=== PATIENT | female | born 2005 | race African-American/Black ===

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

== ENCOUNTER 2025-09-04 18:45 | Emergency (ER) | payer MEDICAID ==
[~2025-09-04] VITALS: Ht 182.9 cm; Wt 60.0 kg
[~2025-09-04 18:45] MED LIST: IBUP-1455 MT
[2025-09-04 18:46] VITALS: O2SAT 97
[2025-09-04 19:44] LABS: BASOPHILS % 0.9 % (0.0-2.0); EOSINOPHILS % 0.1 % (0.0-5.0); HEMATOCRIT. 41.1 % (36.0-48.0); HEMOGLOBIN. 13.5 g/dL (12.0-16.0); LYMPHOCYTES % 15.6 % (20.0-50.0); MEAN PLATELET VOLUME 9.3 fl (7.4-10.4); MONOCYTES % 9.7 % (2.0-8.0); NEUTROPHILS % 73.7 % (40.0-76.0); PLATELET 341 x1000/uL (130-400); RED BLOOD CELL COUNT 4.84 mill/uL (4.2-5.4); RED CELL DISTRIBUTION WIDTH 16.2 % (11.6-14.6)
[2025-09-04] MEDS: SODIUM CHLORIDE 0.9% 1,000 ML IV ONE (19:57)
[2025-09-04] MEDS: ONDANSETRON HCL 4MG/2ML INJ IV ONE (19:57)
[2025-09-04 20:02] LABS: CREATININE 0.9 mg/dL (0.6-1.0)
[2025-09-04 20:03] LABS: UREA NITROGEN BLOOD 17 mg/dL (9-23)
[2025-09-04 20:04] LABS: ASPARTATE AMINOTRANSFERASE 19 IU/L (<34); BILIRUBIN DIRECT 0.4 mg/dL (<=3.0)
[2025-09-04 20:05] LABS: BILIRUBIN TOTAL 1.6 mg/dL (0.1-1.0); PROTEIN TOTAL 8.2 g/dL (6.0-8.3)
[2025-09-04 20:17] LABS: HCG SCREEN NEGATIVE
[2025-09-04] MEDS: KETOROLAC 15MG/ML VIAL IV ONE (20:30)
[2025-09-04 21:52] LABS: CLARITY URINE CLEAR (CLEAR); COLOR URINE DARK YELLOW (YELLOW); GLUCOSE URINE NEGATIVE (NEGATIVE); KETONES URINE 1+ (NEGATIVE); LEUKOCYTE ESTERASE URINE TRACE (NEGATIVE); NITRITE URINE NEGATIVE (NEGATIVE); OCCULT BLOOD URINE 2+ (NEGATIVE); PH URINE 6.5 (4.5-8.0); PROTEIN URINE 1+ (NEGATIVE); SPECIFIC GRAVITY URINE 1.036 (1.005-1.030); UROBILINOGEN URINE 1.0 E.U./dL (0.2-1.0)
[2025-09-04 22:05] LABS: BACTERIA URINE 1+; SQUAMOUS EPITHELIAL CELL URINE FEW /lpf (RARE/1+)
[2025-09-04] MEDS ORDERED: SULF1TAB48 MT (22:09)
[2025-09-04] MEDS ORDERED: IBUP-1455 MT (22:10)
[2025-09-04 22:26] VITALS: BP 123/71; PULSE 93; RESP 16; TEMP 36.7; O2SAT 100
== END 2025-09-04 23:01 | disposition home or self-care (01) ==
LOC: ER 18:45
DX: N39.0 Urinary tract infection, site not specified (principal); R10.9 Unspecified abdominal pain; N91.2 Amenorrhea, unspecified; N94.6 Dysmenorrhea, unspecified
CPT/HCPCS: 99284; 96374; 96361; 96375; 80076; 80048; 81003; 84703; 83690; 83735; 85025; 36415; J1885; J2405; J7030

== ENCOUNTER 2025-10-04 09:42 | Emergency (ER) | payer MEDICAID ==
[~2025-10-04] VITALS: Ht 182.9 cm; Wt 54.0 kg
[~2025-10-04 09:42] MED LIST changes: +SULF1TAB48 MT
[2025-10-04 09:50] VITALS: O2SAT 99
[2025-10-04] MEDS: ONDANSETRON HCL 4MG/2ML INJ IV ONE (10:21)
[2025-10-04] MEDS: SODIUM CHLORIDE 0.9% 1,000 ML IV ONE (10:21)
[2025-10-04 10:51] LABS: BASOPHILS % 0.6 % (0.0-2.0); EOSINOPHILS % 0.3 % (0.0-5.0); HEMATOCRIT. 41.7 % (36.0-48.0); HEMOGLOBIN. 13.8 g/dL (12.0-16.0); LYMPHOCYTES % 9.7 % (20.0-50.0); MEAN PLATELET VOLUME 9.5 fl (7.4-10.4); MONOCYTES % 7.6 % (2.0-8.0); NEUTROPHILS % 81.8 % (40.0-76.0); PLATELET 312 x1000/uL (130-400); RED BLOOD CELL COUNT 4.84 mill/uL (4.2-5.4); RED CELL DISTRIBUTION WIDTH 15.9 % (11.6-14.6)
[2025-10-04 11:07] LABS: CREATININE 0.9 mg/dL (0.6-1.0); UREA NITROGEN BLOOD 18 mg/dL (9-23)
[2025-10-04 11:08] LABS: ETHANOL BLOOD < 10 mg/dL (<10); PROTEIN TOTAL 8.3 g/dL (6.0-8.3)
[2025-10-04 11:09] LABS: ASPARTATE AMINOTRANSFERASE 22 IU/L (<34); BILIRUBIN DIRECT 0.6 mg/dL (<=3.0)
[2025-10-04 11:10] LABS: BILIRUBIN TOTAL 2.0 mg/dL (0.1-1.0); HCG SCREEN NEGATIVE
[2025-10-04 12:34] LABS: *AMPHETAMINES SCREEN URINE NEGATIVE (NEGATIVE); *BARBITURATES SCREEN URINE NEGATIVE (NEGATIVE); *BENZODIAZEPINES SCREEN URINE NEGATIVE (NEGATIVE); *COCAINE SCREEN URINE NEGATIVE (NEGATIVE); CANNABINOID URINE SCREEN PRESUMPTIVE POSITIVE (NEGATIVE); ECSTASY MDMA SCREEN URINE NEGATIVE (NEGATIVE); METHADONE URINE SCREEN NEGATIVE (NEGATIVE); OPIATES URINE SCREEN NEGATIVE (NEGATIVE); PHENCYCLIDINE URINE SCREEN NEGATIVE (NEGATIVE)
[2025-10-04] MEDS ORDERED: PANT40SU MT (13:21)
[2025-10-04] MEDS ORDERED: ONDA4TAB50 MT (13:21)
[2025-10-04 14:01] VITALS: BP 144/94; PULSE 85; RESP 16; TEMP 36.9; O2SAT 100
== END 2025-10-04 14:02 | disposition home or self-care (01) ==
LOC: ER 09:42
DX: R10.33 Periumbilical pain (principal); R11.2 Nausea with vomiting, unspecified; Z79.899 Other long term (current) drug therapy
CPT/HCPCS: 80076; 80305; 80048; 80320; 84703; 83690; 83735; 85025; 36415; 74176; 96361; 96374; 99285; J2405; J7030; Z7610 ×2; G0480